=== PATIENT | female | born 1990 ===

== ENCOUNTER 2018-11-10 10:03 | Emergency (ER) | payer MEDICAID ==
[2018-11-10 10:10] VITALS: BP 152/78; PULSE 69; RESP 18; TEMP 97.8; O2SAT 100
--- NOTE | 2018-11-10 10:32 | C.PDOC ---
History Of Present Illness 28 y/o female pt with PMHx of miscarriage presents to the ER c/o itchy rash underneath her breast since yesterday. Pt reports she tried going to her PMD but he is booked for the whole week and her next appointment is November 26. Pt also reports she is concerned about her vaginal area. She states that for the past couple of weeks, she has had itchiness in the vaginal area with little discharge. Pt notes she was unable to see her OBGYN. Pt has never had any of these sx nor does she has any concern regarding STD. Pt denies any other associated sx or complaints. Time Seen by Provider: 11/10/18 10:10 Chief Complaint (Nursing): Abnormal Skin Integrity History Per: Patient History/Exam Limitations: no limitations Onset/Duration Of Symptoms: Days (x1) Current Symptoms Are (Timing): Still Present Past Medical History Reviewed: Historical Data, Nursing Documentation, Vital Signs Vital Signs: Last Vital Signs Temp 97.8 F 11/10/18 10:06 Pulse 69 11/10/18 10:06 Resp 18 11/10/18 10:06 BP 152/78 H 11/10/18 10:06 Pulse Ox 100 11/10/18 10:06 Surgical History: Cholecystectomy Family History: States: Unknown Family Hx - Social History Hx Tobacco Use: No Hx Alcohol Use: Yes Hx Substance Use: No - Immunization History Hx Tetanus Toxoid Vaccination: Yes Hx Influenza Vaccination: Yes Hx Pneumococcal Vaccination: No Review Of Systems Constitutional: Negative for: Fever, Chills Cardiovascular: Negative for: Chest Pain Genitourinary: Positive for: Vaginal Discharge (minimal ), Other (itchiness in vaginal area ). Negative for: Dysuria, Frequency, Hematuria, Pelvic Pain Skin: Positive for: Rash (underneath breast ) Physical Exam - Physical Exam Appears: Non-toxic, No Acute Distress Skin: Warm, Dry, No Rash Head: Normacephalic Cardiovascular: Rhythm Regular Respiratory: Normal Breath Sounds, No Rales, No Rhonchi, No Wheezing Gastrointestinal/Abdominal: Soft, No Tenderness Pelvic: Vaginal Discharge (minimal ), No Cervical Motion Tenderness, Other (no yeast) Extremity: Normal ROM (x4) Neurological/Psych: Oriented x3, Normal Speech, Normal Cognition ED Course And Treatment O2 Sat by Pulse Oximetry: 100 (RA) Pulse Ox Interpretation: Normal Progress Note: Plans: -- UA. Pt instructed to f/u with OBGYn if sx does not resolve. Disposition Counseled Patient/Family Regarding: Studies Performed, Diagnosis, Need For Foll owup, Rx Given - Disposition Referrals: [facility] [Outside] Disposition: HOME/ ROUTINE Disposition Time: 11:40 Condition: STABLE Additional Instructions: FOLLOW UP WITH YOUR DOCTOR IN 1-2 DAYS, AND WITH YOUR SILO ERECTOR WITHIN 1 WEEK IF SYMPTOMS PERSIST RETURN TO ER IF SYMPTOMS WORSEN USE MEDICATIONS DIRECTED Prescriptions: Ketoconazole 2% Cr [Nizoral] 1 appl EXT BID #1 tube Loratadine [Claritin] 10 mg PO DAILY PRN #30 tab PRN Reason: Itching / Pruritus metroNIDAZOLE [Flagyl] 500 mg PO BID #14 tab Instructions: Bacterial Vaginosis (DC), Fungal Skin Rash (DC) Forms: [employer] (Urdu) Print Language: CONGOLESE - Clinical Impression Clinical Impression: Tinea corporis, Bacterial vaginosis - Scribe Statement The provider has reviewed the documentation as recorded by the Mike Kim Do Provider Attestation: All medical record entries made by the Mike were at my direction and personally dictated by me. I have reviewed the chart and agree that the record accurately reflects my personal performance of the history, physical exam, medical decision making, and the department course for this patient. I have also personally directed, reviewed, and agree with the discharge instructions and disposition.
[2018-11-10 11:09] LABS: SQUAMOUS EPITHIAL 12 /hpf (0-5); URINE BILIRUBIN NEGATIVE (NEGATIVE); URINE BLOOD 1+ (NEGATIVE); URINE CLARITY Hazy (Clear); URINE COLOR Yellow (YELLOW); URINE GLUCOSE (UA) NORMAL (Normal); URINE LEUKOCYTE ESTERASE TRACE Leu/uL (Negative); URINE PROTEIN NEGATIVE (NEGATIVE); URINE UROBILINOGEN NORMAL mg/dL (0.2-1.0)
[2018-11-10 11:15] LABS: HCG,QUALITATIVE URINE NEGATIVE (NEGATIVE)
== END 2018-11-10 11:39 | disposition home or self-care (01) ==
LOC: C.ER 10:03
DX: B35.4 Tinea corporis (principal); N76.0 Acute vaginitis